=== PATIENT | male | born 1960 | race Hispanic/Latino ===

== ENCOUNTER → 2017-05-12 | Day surgery (SDC) | payer BC ==
[~2017-05-12] MED LIST: CEFAZOLIN SOD 1 GM/NS 50ML 50 ML IV ONE; FENTANYL CITRATE/PF 100MCG/2 ML INJ ONE; MIDAZOLAM HCL 2 MG/2 ML VIAL ONE; PROPOFOL IV EMULSION 10 MG/ML 20 ML VIAL ONE; SEVOFLURANE INHAL SOLN 250 ML PEN BTL ONE
--- NOTE | 2017-05-12 10:44 | Operative Report ---
DATE OF PROCEDURE: May 12, 2017 PREOPERATIVE DIAGNOSIS: Left knee medial meniscal tear. 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 PROCEDURES: Left knee arthroscopy, partial medial meniscectomy, resection of medial parapatellar plica, and chondroplasty of the trochlear groove. ADOPTION SOCIAL WORKER: Uriel Thomsa PA-C The patient was brought to the operating room for induction of anesthesia. Throughout this case, my PA's assistance was necessary for retraction of soft tissue and positioning of the extremity. This allows for efficient and technically successful execution of the operation and is considered medically necessary. INDICATIONS: The patient is a 57-year-old gentleman who has left knee pain. Clinic exam and MRI findings are consistent with a medial meniscal tear. The findings and options have been discussed. Realistic expectations have been stressed. The possibility of some arthritic pain postoperatively was explained. He states he understands and wishes to proceed. DESCRIPTION OF PROCEDURE: The patient was brought to the operating room and placed under general anesthetic. His left lower extremity was prepped and draped in a sterile manner. A preoperative time-out was performed. The extremity had been exsanguinated and a proximal tourniquet was inflated to 300 mmHg. Standard arthroscopy portals were established. The knee was insufflated with sterile saline and systematically inspected. There was immediately evident a large thickened medial parapatellar plica, which obscured view of the medial compartment. There was evidence of a kissing lesion along the medial femoral condyle. The undersurface of the patella was well preserved, but there was grade III to grade IV chondromalacia of the trochlear groove. A mechanical shaver was introduced into the joint. The pathologically thickened medial parapatellar plica was removed. The unstable margins of the kissing lesion were gently debrided. A fairly large area of chondromalacia of the trochlear groove was also gently contoured back to stable margins. The medial compartment was inspected. There was a complex tear of the posterior horn of the medial meniscus. This was debrided back to a stable margin using a combination of biting forceps and a mechanical shaver. The cruciate ligaments were inspected and probed. They were intact and stable. The lateral compartment was pristine. The knee was thoroughly irrigated. The portal incisions were closed with nylon stitches. A sterile bandage was applied. The patient was extubated and transported to the recovery room in stable condition. Job#: [id number] SAK
== END | disposition home or self-care (01) ==
LOC: OR 07:05
PROVIDERS: ATTEND Specialist
DX: S83.232A Complex tear of medial meniscus, current injury, left knee, initial encounter (principal); M67.52 Plica syndrome, left knee; M94.262 Chondromalacia, left knee; S83.231A Complex tear of medial meniscus, current injury, right knee, initial encounter; M75.41 Impingement syndrome of right shoulder; X58.XXXA Exposure to other specified factors, initial encounter; Z01.810 Encounter for preprocedural cardiovascular examination
CPT/HCPCS: 29881; 93005; J2250

== ENCOUNTER 2020-03-12 17:48 | Emergency (ER) | payer BC ==
[~2020-03-12] VITALS: Ht 170.2 cm; Wt 75.7 kg
[2020-03-12] MEDS ORDERED: ACETAMINOPHEN 325 MG TAB PO ONE (18:30)
[2020-03-12 19:35] VITALS: BP 126/74
== END 2020-03-12 19:45 | disposition home or self-care (01) ==
LOC: ER 18:07
DX: U07.1 COVID-19 (principal); R50.9 Fever, unspecified; R05 Cough
CPT/HCPCS: 99282

== ENCOUNTER → 2023-03-24 | Outpatient (RCR) | payer OTHER | LOC: PT 13:42 | PROVIDERS: ATTEND Specialist | DX: Z47.89 Encounter for other orthopedic aftercare (principal); S46.011D Strain of muscle(s) and tendon(s) of the rotator cuff of right shoulder, subsequent encounter ==

== ENCOUNTER 2023-03-30 09:08 | Outpatient (RCR) | payer OTHER | END 2023-04-23 | LOC: PT 09:08 | PROVIDERS: ATTEND Specialist | DX: Z47.89 Encounter for other orthopedic aftercare (principal); S46.011D Strain of muscle(s) and tendon(s) of the rotator cuff of right shoulder, subsequent encounter ==